=== PATIENT | female | born 2000 | race African-American/Black ===

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

== ENCOUNTER 2019-05-06 08:14 | Emergency (ER) | payer SELFPAY ==
[2019-05-06 09:13] LABS: APPEARANCE,URINE SLIGHTLY-CLOUDY; BILIRUBIN,URINE NEGATIVE (NEGATIVE); COLOR,URINE YELLOW; GLUCOSE, URINE NEGATIVE (NEGATIVE); KETONES,URINE NEGATIVE (NEGATIVE); LEUKOCYTE ESTERASE,URINE MODERATE (NEGATIVE); NITRITE,URINE NEGATIVE (NEGATIVE); PROTEIN,URINE 30 mg/dL (NEGATIVE)
--- NOTE | 2019-05-06 09:45 | ER Document Report ---
HPI - HPI Time Seen by Provider: 05/06/19 09:43 Pain Level: 3 Notes: Patient is an otherwise healthy 18-year-old female presented to the emergency department chief complaint of urinary frequency, dysuria and low back pain. Patient denies any vomiting or fever. Patient also reports intermittent burning sensation in her chest associated with eating. Patient denies any vomiting. - REPRODUCTIVE Reproductive: DENIES: : Past Medical History - General Information source: Patient - Social History Smoking Status: Never Smoker Frequency of alcohol use: None Drug Abuse: None Family History: Reviewed & Not Pertinent Patient has suicidal ideation: No Patient has homicidal ideation: No - Medical History Medical History: Negative Renal/ Medical History: Denies: Hx Peritoneal Dialysis Surgical Hx: Negative - Immunizations Immunizations up to date: Yes Hx Diphtheria, Pertussis, Tetanus Vaccination: Yes Vertical Provider Document - CONSTITUTIONAL Notes: PHYSICAL EXAMINATION: GENERAL: Well-appearing, well-nourished and in no acute distress. HEAD: Atraumatic, normocephalic. EYES: Pupils equal round and reactive to light, extraocular movements intact, conjunctiva are normal. ENT: Nares patent, oropharynx clear without exudates. Moist mucous membranes. NECK: Normal range of motion, supple without lymphadenopathy LUNGS: Breath sounds clear to auscultation bilaterally and equal. No wheezes rales or rhonchi. HEART: Regular rate and rhythm without murmurs ABDOMEN: Soft, nontender, nondistended abdomen. No guarding, no rebound. No masses appreciated. Female : No CVA tenderness. Musculoskeletal: Normal range of motion, no pitting or edema. No cyanosis. NEUROLOGICAL: Cranial nerves grossly intact. Normal speech, normal gait. Normal sensory, motor exams PSYCH: Normal mood, normal affect. SKIN: Warm, Dry, normal turgor, no rashes or lesions noted. - INFECTION CONTROL TRAVEL OUTSIDE OF THE [place] IN LAST 30 DAYS: No Course - Re-evaluation Re-evalutation: Patient appears well, nontoxic and vital signs are within normal limits. Urinalysis is consistent with urinary tract infection. Patient has not had any vomiting or fever so I do not suspect a pyelonephritis at this time. She does report intermittent burning in the middle of her chest, this is most likely consistent with gastroesophageal reflux. She will be instructed to take [id number] omeprazole. She understands ED return precautions and agrees to same. The patient's emergency department workup and current diagnosis were explained to the patient and or family. Follow-up instructions were provided. Medications if prescribed were discussed. Instructions for when to return to the emergency department including specific worrisome symptoms were discussed with the patient and/or family. - Vital Signs Vital signs: Temp Pulse Resp BP Pulse Ox 98.3 F 74 16 132/83 H 100 05/06/19 08:18 05/06/19 08:18 05/06/19 08:18 05/06/19 08:18 05/06/19 08:18 - Laboratory Laboratory results interpreted by me: 05/06/19 08:50 Urine Protein 30 H Urine Blood SMALL H Urine Urobilinogen 4.0 H Ur Leukocyte Esterase MODERATE H Discharge - Discharge Clinical Impression: Urinary tract infection Qualifiers: Urinary tract infection type: site unspecified Hematuria presence: without hematuria Qualified Code(s): N39.0 - Urinary tract infection, site not specified Back pain Qualifiers: Back pain location: low back pain Chronicity: unspecified Back pain laterality: unspecified Sciatica presence: unspecified whether sciatica present Qualified Code(s): M54.5 - Low back pain Condition: Stable Disposition: HOME, SELF-CARE Additional Instructions: Your urine shows findings consistent with a urinary tract infection. Please take all the antibiotics as directed even if your symptoms have improved. Please follow-up with your primary care physician as needed. Return to emergency room if you develop fever >101F, persistent vomiting, become lethargic, have severe pain in your sides, or any other symptoms that are concerning to you. Prescriptions: Cephalexin [Cephalexin 500 MG Tablet] 1 tab PO BID #14 tablet Ondansetron [Zofran Odt 4 mg Tablet] 1 - 2 tab PO Q4H PRN #15 tab.rapdis PRN Reason: For Nausea/Vomiting Forms: Return to Work Referrals: CARINE HERNANDEZ NP [Primary Care Provider] - Follow up as needed
[2019-05-06 09:53] VITALS: BP 116/67
== END 2019-05-06 09:55 | disposition home or self-care (01) ==
LOC: ER 08:14
DX: N39.0 Urinary tract infection, site not specified (principal); R35.0 Frequency of micturition; R30.0 Dysuria; M54.5 Low back pain
CPT/HCPCS: 81001; 99283

== ENCOUNTER 2019-07-05 20:45 | Emergency (ER) | payer OTHER ==
[2019-07-05 21:22] VITALS: BP 126/72
[2019-07-05] MEDS ORDERED: IBUPROFEN 600 MG TABLET PO ONE (22:20)
[2019-07-05] MEDS ORDERED: METHOCARBAMOL 750 MG TABLET PO ONE (22:20)
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
== END 2019-07-05 22:58 | disposition home or self-care (01) ==
LOC: ER 20:45
DX: M54.2 Cervicalgia (principal); M25.511 Pain in right shoulder; V43.62XA Car passenger injured in collision with other type car in traffic accident, initial encounter
CPT/HCPCS: 99283; J3490